=== PATIENT | female | born 1995 | race Two or more races ===

== ENCOUNTER 2021-07-22 12:35 | Emergency (ER) | payer OTHER ==
[~2021-07-22] VITALS: Ht 160 cm; Wt 55.0 kg
[2021-07-22 12:45] VITALS: BP 118/77
[2021-07-22] MEDS ORDERED: BENZ-16 MT (14:11)
[2021-07-22] MEDS ORDERED: ALBU6.7H9 INH (14:11)
[2021-07-22] MEDS ORDERED: TUSSL MT (14:11)
== END 2021-07-22 14:45 | disposition home or self-care (01) ==
LOC: ER 12:35
DX: R05.9 Cough, unspecified (principal); J06.9 Acute upper respiratory infection, unspecified
CPT/HCPCS: 81025; 99283